=== PATIENT | female | born 1960 | race African-American/Black ===

== ENCOUNTER 2017-07-01 14:45 | Emergency (ER) | payer OTHER ==
[~2017-07-01] VITALS: Ht 172.7 cm; Wt 100.0 kg
[2017-07-01 16:59] VITALS: BP 129/68
== END 2017-07-01 17:03 | disposition home or self-care (01) ==
LOC: EME 14:45
DX: F43.0 Acute stress reaction (principal); F43.24 Adjustment disorder with disturbance of conduct; F41.9 Anxiety disorder, unspecified; I10 Essential (primary) hypertension
CPT/HCPCS: 90839; 99281; 99285